=== PATIENT | male | born 1970 | race Caucasian/White ===

== ENCOUNTER 2017-08-21 10:39 | Inpatient (IN) | payer BC ==
[~2017-08-21 10:39] MED LIST: DEXAMETHASONE SOD PHOSPHATE INJ 4 MG/1 ML VIAL ONE; KETOROLAC TROMETHAMINE 60 MG/2 ML SDV ONE; LIDOCAINE 2% INJ-PF (20 MG/ML) 2 ML AMPUL ONE; METOCLOPRAMIDE HCL INJ/PF 10 MG/2 ML SDV ONE; SUCCINYLCHOLINE CHLORIDE INJ 200 MG/10 ML VIAL ONE
--- NOTE | 2017-08-21 10:58 | ER Document Report ---
HPI - HPI Patient complains to provider of: spider bite Onset: Other - wed Onset/Duration: Constant Pain Level: 4 - REPRODUCTIVE Reproductive: DENIES: : Past Medical History Endocrine Medical History: Reports: Hx Diabetes Mellitus Type 1 - Immunizations Hx Diphtheria, Pertussis, Tetanus Vaccination: Yes
--- NOTE | 2017-08-21 11:01 | ER Document Report ---
ED Medical Screen (RME) - General Chief Complaint: Insect Bite Stated Complaint: POSSIBLE SPIDER BITE Time Seen by Provider: 08/21/17 10:47 Mode of Arrival: Ambulatory Information source: Patient - Related Data Allergies/Adverse Reactions: No Known Allergies Allergy (Verified 08/21/17 10:43) Past Medical History - Social History Frequency of alcohol use: none in 3 months Drug Abuse: None Endocrine Medical History: Reports: Hx Diabetes Mellitus Type 1 Renal/ Medical History: Denies: Hx Peritoneal Dialysis - Immunizations Hx Diphtheria, Pertussis, Tetanus Vaccination: Yes Physical Exam - Vital signs Vitals: Temp Pulse BP Pulse Ox 98.7 F 111 H 120/73 94 08/21/17 10:45 08/21/17 10:45 08/21/17 10:45 08/21/17 10:45 Course - Re-evaluation Re-evalutation: 08/21/17 11:08 dr alegre looked at the wound, called dr miller who will do under anesthesia, keep npo, hydrate, he will see the pt in 1 hour. - Vital Signs Vital signs: Temp Pulse Resp BP Pulse Ox 98.7 F 111 H 120/73 94 08/21/17 10:45 08/21/17 10:45 08/21/17 10:45 08/21/17 10:45 Doctor's Discharge - Discharge Referrals: ROMEO PEDRO MD [Primary Care Provider] - Follow up as needed
[2017-08-21] MEDS ORDERED: VANCOMYCIN HCL INJ 1000 MG VIAL IV ONE (11:04)
[2017-08-21] MEDS ORDERED: NORMAL SALINE 1000 ML 1,000 ML IV ONE (11:07)
--- NOTE | 2017-08-21 11:27 | ER Document Report ---
ED Skin Rash/Insect Bite/Abscs - General Chief Complaint: Insect Bite Stated Complaint: POSSIBLE SPIDER BITE Time Seen by Provider: 08/21/17 10:47 Mode of Arrival: Ambulatory Notes: 47 yo insulin type 2 diabetic with spider bite (assumption) on tuesday, left upper thigh, in an old building, felt like something bit him while in the building. started as red dot. Taking Motrin. Feels sick, had chills. - Related Data Allergies/Adverse Reactions: No Known Allergies Allergy (Verified 08/21/17 10:43) Past Medical History - General Information source: Patient - Social History Smoking Status: Never Smoker Frequency of alcohol use: none in 3 months Drug Abuse: None Family History: Reviewed & Not Pertinent Patient has suicidal ideation: No Patient has homicidal ideation: No Endocrine Medical History: Reports: Hx Diabetes Mellitus Type 1 Renal/ Medical History: Denies: Hx Peritoneal Dialysis Surgical Hx: Negative - Immunizations Hx Diphtheria, Pertussis, Tetanus Vaccination: Yes Review of Systems - Review of Systems Constitutional: See HPI EENT: No symptoms reported Cardiovascular: No symptoms reported Respiratory: No symptoms reported Gastrointestinal: No symptoms reported Genitourinary: No symptoms reported Male Genitourinary: No symptoms reported Musculoskeletal: No symptoms reported Skin: See HPI Hematologic/Lymphatic: No symptoms reported Neurological/Psychological: No symptoms reported Physical Exam - Vital signs Vitals: Temp Pulse BP Pulse Ox 98.7 F 111 H 120/73 94 08/21/17 10:45 08/21/17 10:45 08/21/17 10:45 08/21/17 10:45 Interpretation: Normal - General General appearance: Appears well, Alert - HEENT Head: Normocephalic, Atraumatic Eyes: Normal Pupils: PERRL Neck: Supple - Respiratory Respiratory status: No respiratory distress Chest status: Nontender Breath sounds: Normal Chest palpation: Normal - Cardiovascular Rhythm: Regular Heart sounds: Normal auscultation Murmur: No - Abdominal Inspection: Normal Distension: No distension Bowel sounds: Normal Tenderness: Nontender Organomegaly: No organomegaly - Back Back: Normal, Nontender - Extremities General upper extremity: Normal inspection, Nontender, Normal color, Normal ROM , Normal temperature General lower extremity: Tender, Edema, Other - 4 cm eroded tissue with exudate left upper lateral thigh with 4 cm surrounding erythema, tender - Neurological Neuro grossly intact: Yes Cognition: Normal Orientation: AAOx4 Rashaun Coma Scale Eye Opening: Spontaneous Rashaun Coma Scale Verbal: Oriented Rashaun Coma Scale Motor: Obeys Commands Rashaun Coma Scale Total: 15 Speech: Normal Motor strength normal: LUE, RUE, LLE, RLE Sensory: Normal - Psychological Associated symptoms: Normal affect, Normal mood - Skin Skin Temperature: Warm Skin Moisture: Dry Skin Color: Normal Course - Re-evaluation Re-evalutation: 08/21/17 11:08 dr alegre looked at the wound, called dr miller who will do under anesthesia, keep npo, hydrate, he will see the pt in 1 hour. 08/21/17 13:00 dr miller has been called multiple times by the nurse and he has not seen the pt. yet. Pt NPO, vancomycin given, resting, vitals stable. 08/21/17 14:00 pt going to surgical bed upstairs. - Vital Signs Vital signs: Temp Pulse Resp BP Pulse Ox 98.7 F 98 18 112/59 L 97 08/23/17 16:15 08/23/17 16:15 08/23/17 16:15 08/23/17 16:15 08/23/17 16:15 - Laboratory Result Diagrams: 08/23/17 04:39 08/23/17 04:39 Laboratory results interpreted by me: 08/21/17 08/21/17 08/21/17 11:20 11:20 17:22 RBC 4.17 L Hgb 12.2 L Hct 36.2 L RDW 14.3 H Sodium 136.1 L Glucose 305 H POC Glucose 199 H Alkaline Phosphatase 162 H Total Protein 6.2 L 08/21/17 08/22/17 08/22/17 22:47 06:16 11:20 RBC Hgb Hct RDW Sodium Glucose POC Glucose 303 H 313 H 283 H Alkaline Phosphatase Total Protein Discharge - Discharge Clinical Impression: left aterior thigh abscess Condition: Good Disposition: ADMITTED OBSERVATION Admitting Provider: Surgicalist Unit Admitted: Surgical Floor
[2017-08-21] MEDS ORDERED: FENTANYL CITRATE INJ/PF 100 MCG/2 ML AMPUL IV ONE (11:39)
[2017-08-21 11:55] LABS: ABSOLUTE EOSINOPHILS # (AUTO) 0.2 10^3/uL (0.0-0.6); ABSOLUTE LYMPHOCYTES (AUTO) 1.9 10^3/uL (0.5-4.7); ABSOLUTE NEUT (AUTO) 5.8 10^3/uL (1.7-8.2); BASOPHILS % (AUTO) 0.1 % (0-2); EOSINOPHILS % (AUTO) 2.4 % (0-6); HEMATOCRIT 36.2 % (37.9-51.0); HEMOGLOBIN 12.2 g/dL (13.5-17.0); LYMPHOCYTES % (AUTO) 21.3 % (13-45); MEAN CORPUSCULAR HEMOGLOBIN 29.3 pg (27.0-33.4); MEAN CORPUSCULAR HGB CONC 33.8 g/dL (32.0-36.0); MEAN CORPUSCULAR VOLUME 87 fl (80-97); MONOCYTES % (AUTO) 11.1 % (3-13); PLATELET COUNT 232 10^3/uL (150-450); RED BLOOD COUNT 4.17 10^6/uL (4.35-5.55); RED CELL DISTRIBUTION WIDTH 14.3 % (11.5-14.0); SEGMENTED NEUTROPHILS % (AUTO) 65.1 % (42-78); TOTAL CELLS COUNTED % (AUTO) 100 %
[2017-08-21 12:12] LABS: ALANINE AMINOTRANSFERASE 39 U/L (21-72); ALBUMIN 3.5 g/dL (3.5-5.0); ALKALINE PHOSPHATASE 162 U/L (38-126); ANION GAP 12 (5-19); ASPARTATE AMINO TRANSFERASE 19 U/L (17-59); BILIRUBIN,DIRECT 0.4 mg/dL (0.0-0.4); BILIRUBIN,TOTAL 0.6 mg/dL (0.2-1.3); BLOOD UREA NITROGEN 15 mg/dL (7-20); CALCIUM 9.4 mg/dL (8.4-10.2); CARBON DIOXIDE 25 mmol/L (22-30); CHLORIDE 99 mmol/L (98-107); GLUCOSE 305 mg/dL (75-110); POTASSIUM 4.2 mmol/L (3.6-5.0); SODIUM 136.1 mmol/L (137-145); TOTAL PROTEIN 6.2 g/dL (6.3-8.2)
[2017-08-21] MEDS ORDERED: DEXTROSE 50%-WATER 25 GM/50 ML DISP.SYRIN IV PRN ×2 (15:10)
[2017-08-21] MEDS ORDERED: DEXTROSE 40% GEL 15 GM TUBE PO PRN ×2 (15:10)
[2017-08-21] MEDS ORDERED: GLUCAGON,HUMAN RECOMB 1 MG INJ SUBCUT PRN (15:10)
[2017-08-21] MEDS ORDERED: FENTANYL CITRATE INJ/PF 100 MCG/2 ML AMPUL ONE ×2 (15:37→17:50)
[2017-08-21] MEDS ORDERED: MIDAZOLAM 2 MG/2 ML INJ ONE (15:37)
[2017-08-21] MEDS ORDERED: KETAMINE HCL INJ 500 MG/10 ML VIAL ONE (15:37)
[2017-08-21] MEDS ORDERED: EPHEDRINE SULFATE INJ 50 MG/1 ML AMPULE ONE (15:37)
[2017-08-21] MEDS ORDERED: ACETAMINOPHEN 100 ML IV ONE (15:38)
[2017-08-21] MEDS ORDERED: DEXMEDETOMIDINE INJ 80 MCG/20 ML VIAL IV ONE (15:38)
[2017-08-21] MEDS ORDERED: PROPOFOL INJ 200 MG/20 ML VIAL IV ONE (15:38)
[2017-08-21] MEDS ORDERED: ONDANSETRON HCL INJ/PF 4 MG/2 ML SDV IV PRN (15:47)
[2017-08-21] MEDS ORDERED: DIPHENHYDRAMINE HCL 50 MG/ML VIAL IV PRN (15:47)
[2017-08-21] MEDS ORDERED: MEPERIDINE HCL/PF INJ 25 MG/1 ML DISP.SYRIN IV PRN (15:47)
[2017-08-21] MEDS ORDERED: FENTANYL CITRATE INJ/PF 100 MCG/2 ML AMPUL IV PRN ×3 (15:47)
[2017-08-21] MEDS ORDERED: PROMETHAZINE HCL INJ 25 MG/1 ML VIAL IV PRN ×2 (15:47)
--- NOTE | 2017-08-21 15:53 | PDOC H&P ---
History of Present Illness Admission Date/PCP: 08/21/17 13:07 ROMEO PEDRO Patient complains of: pains right thigh History of Present Illness: ASHKAN LANE JR is a 47 year old male, while wearing a shorts, walking thru an old building felt a sharp sting on his right thigh 08/18/17. His right thigh noted to be red and swollen around 08/20/17 asso with feeling chills 08/20/17 which would subside whwn he lies down on bed. Also 08/20 noted serous drainage and worsen this am. Past Medical History Endocrine Medical History: Reports: Diabetes Mellitus Type 1 Social History Smoking Status: Never Smoker - Advance Directive Resuscitation Status: Full Code Family History Parental Family History Reviewed: Yes - both parents has DM Children Family History Reviewed: No Sibling(s) Family History Reviewed.: No Medication/Allergy Home Medications: Diazepam [Valium 5 mg Tablet] 5 mg PO DAILYP PRN 08/21/17 Ergocalciferol (Vitamin D2) [Vitamin D2] 50,000 unit PO SOLER@1000 08/21/17 Insulin Aspart [Novolog Flexpen] 0 unit SUBCUT .SLD SCALE 08/21/17 Insulin Glargine,Hum.rec.anlog [Lantus Solostar] 70 unit SQ QHS 08/21/17 Simvastatin [Zocor 20 mg Tablet] 20 mg PO QHS 08/21/17 Sitagliptin Phos/Metformin HCl [Janumet 50-1,000 Mg Tablet] 1 each PO Q12@0600, 1800 08/21/17 Valsartan [Diovan 80 mg Tablet] 80 mg PO DAILY 08/21/17 Allergies/Adverse Reactions: No Known Allergies Allergy (Verified 08/21/17 10:43) Review of Systems Constitutional: PRESENT: chills Eyes: PRESENT: other - no visual/hearing changes Cardiovascular: PRESENT: other - no chest pains/cough Gastrointestinal: PRESENT: other - no abdominal pains Genitourinary: PRESENT: other - no dysuria Musculoskeletal: PRESENT: other - left thigh pains Integumentary: PRESENT: erythema - swelling left anterior thigh Neurological: PRESENT: other - no seizures Physical Exam Vital Signs: Temp Pulse Resp BP Pulse Ox 98.7 F 97 22 H 111/64 97 08/21/17 15:12 08/21/17 15:12 08/21/17 15:12 08/21/17 15:12 08/21/17 15:12 General appearance: PRESENT: mild distress Head exam: PRESENT: atraumatic Eye exam: PRESENT: conjunctiva pink Mouth exam: PRESENT: moist Neck exam: PRESENT: full ROM Respiratory exam: PRESENT: clear to auscultation nicole Cardiovascular exam: PRESENT: RRR Pulses: PRESENT: normal radial pulses Vascular exam: PRESENT: normal capillary refill GI/Abdominal exam: PRESENT: soft Rectal exam: PRESENT: deferred Extremities exam: PRESENT: full ROM, tenderness - and redness left anterior thigh Musculoskeletal exam: PRESENT: ambulatory Neurological exam: PRESENT: alert, oriented to person, oriented to place, oriented to time, oriented to situation Psychiatric exam: PRESENT: appropriate affect Skin exam: PRESENT: erythema, rash - swelling left anterior thigh Assessment & Plan - Diagnosis (1) Abscess Is this a current diagnosis for this admission?: Yes (2) Insect bite of left thigh Is this a current diagnosis for this admission?: Yes - Time Time Spent: 30 to 50 Minutes - Plan Summary Plan Summary: IV antibiotic For I&D and debridement left thigh
[2017-08-21] MEDS ORDERED: LIDOCAINE 2% INJ-PF (20 MG/ML) 10 ML AMPUL ONE (16:51)
[2017-08-21] MEDS ORDERED: KETOROLAC TROMETHAMINE 60 MG/2 ML SDV ONE (17:25)
[2017-08-21] MEDS ORDERED: HYDROMORPHONE HCL INJ/PF 2 MG/ML AMPULE ONE (17:25)
[2017-08-21] MEDS ORDERED: DIPHENHYDRAMINE HCL 50 MG/ML VIAL ONE (17:26)
[2017-08-21] MEDS ORDERED: NORMAL SALINE 1000 ML 1,000 ML IV PRN (17:40)
[2017-08-21] MEDS ORDERED: HYDROMORPHONE HCL INJ/PF 2 MG/ML AMPULE IV PRN (17:41)
--- NOTE | 2017-08-21 17:49 | OPERATIVE REPORT E ---
Operative Report NAME: ASHKAN LANE : 1970 AGE: 47Y DATE OF SURGERY: 08/21/2017 ROOM: 414 PREOPERATIVE DIAGNOSIS: ABSCESS, LEFT THIGH. POSTOPERATIVE DIAGNOSIS: ABSCESS, LEFT THIGH. OPERATION: Incision and drainage and debridement with pulse lavage of left thigh abscess. SURGEON: RISHI JOHNS M.D. ANESTHESIA: General. INDICATION: This is a 47-year-old male who thought he was bitten by a spider on the left thigh about 4 days ago. This started to get red and swollen and painful. PROCEDURE: After adequate general anesthesia, patient was placed in supine position, and the left thigh was prepped and draped in usual sterile fashion. Appropriate timeout was then called. Next, a cruciate incision made over the abscess cavity, and a lot of purulent material extruded out. Cultures were obtained. Finger blunt dissection of the cavity was done, and the area was then pulse lavaged with 3 liters of saline. Hemostasis obtained with cautery. The cavity roughly measured about 5 x 5 cm, down to the fascial layer. The area was then packed with a bottle of quarter-inch Iodoform gauze. Sterile dressings placed over the operative site. Patient tolerated procedure well. Needle, instrument and sponge counts were all correct. Estimated blood loss about 20 mL. Patient brought to recovery room in satisfactory condition. DICTATING PHYSICIAN: RISHI JOHNS M.D. [id number] PHY#: [id number] ID: [id number] JOB#: [id number] ACCT: [id number] cc:RISHI JOHNS M.D. >
[2017-08-21] MEDS: OXYCODONE-ACETAMINOPHEN 5-325 MG TABLET PO PRN (21:17)
[2017-08-21] MEDS ORDERED: DIAZEPAM 5 MG TABLET PO PRN (21:50)
[2017-08-21] MEDS ORDERED: INSULIN GLARGINE,HUM.REC.ANLOG 300 UNIT/3 ML INSULN.PEN SUBCUT SCH (22:00)
[2017-08-21] MEDS ORDERED: INSULIN GLARGINE,HUM.REC.ANLOG 1,000 UNIT/10 ML UNIT SUBCUT ONE (22:42)
[2017-08-21] MEDS: SIMVASTATIN 10 MG TABLET PO SCH (22:49)
[2017-08-22] MEDS ORDERED: METFORMIN HCL 500 MG TABLET PO SCH (06:00)
[2017-08-22] MEDS ORDERED: SITAGLIPTIN PHOSPHATE 50 MG TABLET PO SCH (06:00)
[2017-08-22] MEDS: OXYCODONE-ACETAMINOPHEN 5-325 MG TABLET PO PRN ×4 (06:13→18:03)
[2017-08-22] MEDS: INSULIN LISPRO 100 UNIT/ML 3 ML VIAL SUBCUT PRN ×4 (07:52→21:46)
--- NOTE | 2017-08-22 08:50 | PDOC PROGRESS REPORT ---
Subjective Progress Note for:: 08/22/17 Reason For Visit: LEFT ATERIOR THIGH ABSCESS Pain reasonably controlled. Packing removed this morning at bedside. Physical Exam Vital Signs: Temp Pulse Resp BP Pulse Ox 97.5 F 96 18 112/59 L 95 08/22/17 08:00 08/22/17 08:00 08/22/17 08:00 08/22/17 08:00 08/22/17 08:00 Intake & Output 08/21/17 08/22/17 08/23/17 06:59 06:59 06:59 Intake Total 6008 Output Total 3820 Balance 2188 Weight 104.6 kg General appearance: PRESENT: no acute distress Extremities exam: PRESENT: other - Left proximal lateral thigh packing removed; some fibrinous exudate. Surrounding tissue very edematous, indurated. Assessment & Plan - Diagnosis (1) Abscess Is this a current diagnosis for this admission?: Yes Plan: Patient is one day status post debridement left thigh wound, cultures growing gram-positive cocci, wound still hospital Recommendations: 1. Continue local wound care and intravenous antibiotics. 2. Explained to patient he may require subsequent mechanical debridement in the next 24 to 48 hours
[2017-08-22] MEDS: VALSARTAN 80 MG TABLET PO SCH (09:52)
[2017-08-22] MEDS: DOCUSATE SODIUM 100 MG CAPSULE PO SCH ×2 (09:53→18:04)
[2017-08-22] MEDS: VANCOMYCIN HCL 1,000 MG in DEXTROSE 5%-WATER 250 ML IV SCH ×2 (09:53→21:46)
--- NOTE | 2017-08-22 10:08 | Physician Advisory Note ---
Physician Advisor ProgressNote .: [facility] medical [facility] for this patient. Physician Advisor Statement: Nice documentation of continued concerns in note yesterday. STatus: 47yo diabetic (increased risk for infection/poor healing), in w/ progressively worsening soft tissue infection of leg, evidence of abscess that required debridement under anesthesia, finding 5x5cm abscess cavity. despite I& D, washout, packing, ongoing IV abx, the area was still quite edematous and indurated on POD #1, & attending concerned that pt "may need more debridement in next 24-48 hrs", awaiting further results of culture, continuing IV abx. Blood sugars 300s. High risk for further complications if not kept in hospital. Appropriate for Inpatient status. CK
--- NOTE | 2017-08-22 11:51 | PDOC CONSULTATION ---
Consultation Consult Date: 08/22/17 Attending physician:: RISHI JOHNS Consult reason:: HTN and DM History of Present Illness Admission Date/PCP: 08/21/17 13:07 ROMEO PEDRO Patient complains of: abscess History of Present Illness: ASHKAN LANE JR is a 47yo diabetic (increased risk for infection/poor healing), who presented with progressively worsening soft tissue infection of leg, evidence of abscess that required debridement under anesthesia, finding 5x5cm abscess cavity. Despite I&D, washout, packing, ongoing IV antibiotics, the area was still quite edematous and indurated on POD #1 and surgeon concerned that pt may need more debridement in next 24-48 hrs, awaiting further results of culture, continuing IV antibiotics. Blood sugars 300s. High risk for further complications if not kept in hospital. Appropriate for Inpatient status. Hospitalist consulted for HTN and DM management Past Medical History Cardiac Medical History: Reports: Hypertension Pulmonary History Note: SARCOIDOSIS Endocrine Medical History: Reports: Diabetes Mellitus Type 1 Psychiatric Medical History: Denies: Depression Past Surgical History Past Surgical History: Reports: Other - R ULNAR NERVE ENTRAPMENT Social History Smoking Status: Never Smoker Frequency of Alcohol Use: Occasional Hx Recreational Drug Use: No Drugs: None Hx Prescription Drug Abuse: No - Advance Directive Resuscitation Status: Full Code Family History Parental Family History Reviewed: No Children Family History Reviewed: Unknown Sibling(s) Family History Reviewed.: Unknown Medication/Allergy Home Medications: Diazepam [Valium 5 mg Tablet] 5 mg PO DAILYP PRN 08/21/17 Ergocalciferol (Vitamin D2) [Vitamin D2] 50,000 unit PO SOLER@1000 08/21/17 Insulin Aspart [Novolog Flexpen] 0 unit SUBCUT .SLD SCALE 08/21/17 Insulin Glargine,Hum.rec.anlog [Lantus Solostar] 70 unit SQ QHS 08/21/17 Simvastatin [Zocor 20 mg Tablet] 20 mg PO QHS 08/21/17 Sitagliptin Phos/Metformin HCl [Janumet 50-1,000 Mg Tablet] 1 each PO Q12@0600, 1800 08/21/17 Valsartan [Diovan 80 mg Tablet] 80 mg PO DAILY 08/21/17 Allergies/Adverse Reactions: No Known Allergies Allergy (Verified 08/21/17 10:43) Review of Systems All systems: reviewed and no additional remarkable complaints except as stated Physical Exam Vital Signs: Temp Pulse Resp BP Pulse Ox 97.5 F 96 18 112/59 L 96 08/22/17 08:00 08/22/17 08:00 08/22/17 08:00 08/22/17 08:00 08/22/17 11:03 Intake & Output 08/21/17 08/22/17 08/23/17 06:59 06:59 06:59 Intake Total 6008 Output Total 3820 Balance 2188 Weight 104.6 kg General appearance: PRESENT: no acute distress Eye exam: PRESENT: conjunctiva pink, PERRLA Mouth exam: PRESENT: moist Neck exam: PRESENT: full ROM Respiratory exam: PRESENT: clear to auscultation nicole, symmetrical, unlabored Cardiovascular exam: PRESENT: +S1, +S2 Pulses: PRESENT: normal radial pulses, +1 pedal pulses bilateral GI/Abdominal exam: PRESENT: normal bowel sounds, soft. ABSENT: tenderness Rectal exam: PRESENT: deferred Extremities exam: PRESENT: full ROM Musculoskeletal exam: PRESENT: ambulatory, full ROM Neurological exam: PRESENT: alert, awake, oriented to person, oriented to place , oriented to time, oriented to situation Skin exam: PRESENT: other - LLE SURGICAL SITE PACKED WITH IODOFORM AND COVERED WITH GAUZE. Results Status: Imported from PACS Assessment & Plan - Diagnosis (1) Abscess Is this a current diagnosis for this admission?: Yes Plan: Patient presents with 5x5cm abscess to L anterior thigh I&D 08/[address] Hall Packed with iodiform and covered with gauze Continue IV antibiotics per surgery (2) HTN (hypertension) Qualifiers: Hypertension type: essential hypertension Qualified Code(s): I10 - Essential (primary) hypertension Is this a current diagnosis for this admission?: Yes Plan: Patient endorses a [facility] HTN, medications are managed by Dr. Pedro Patient reports having a stress test done 5-10 years ago, was [facility] catheter[facility] and results were negative. No coronary blockage. Continue home dose Diovan and simvastatin (3) Diabetes Qualifiers: Diabetes mellitus type: type 2 Diabetes mellitus half-way insulin use: with terminal gauger supervisor use Diabetes mellitus complication status: without complication Qualified Code(s): E11.9 - Type 2 diabetes mellitus without complications; Z79.4 - long-term (current) use of insulin; Z79.4 - terminal manager ( current) use of insulin; Z79.4 - long-term (current) use of insulin; Z79.4 - terminal manager (current) use of insulin Is this a current diagnosis for this admission?: Yes Plan: Patient endorses history of DM HOLD metformin and januvia for now Continue home dose lantus Accuchecks ACHS, humalog sliding scale insulin Check HgbA1C in AM - Time Medications reviewed and adjusted accordingly: Yes Anticipated discharge: Home Within: within 24 hours - Inpatient Certification Based on my medical assessment, after consideration of the patient's comorbidities, presenting symptoms, or acuity I expect that the services needed warrant INPATIENT care.: Yes I certify that my determination is in accordance with my understanding of Medicare's requirements for reasonable and necessary INPATIENT services [42 CFR 412.3e].: Yes Medical Necessity: Risk of Complication if Not Cared For in Hospital
[2017-08-22] MEDS: SIMVASTATIN 10 MG TABLET PO SCH (21:46)
[2017-08-22] MEDS ORDERED: INSULIN GLARGINE,HUM.REC.ANLOG 1,000 UNIT/10 ML UNIT SUBCUT SCH (22:00)
[2017-08-23] MEDS: OXYCODONE-ACETAMINOPHEN 5-325 MG TABLET PO PRN (00:23)
[2017-08-23 05:05] LABS: ABSOLUTE BASOPHILS # (AUTO) 0.1 10^3/uL (0.0-0.2); ABSOLUTE EOSINOPHILS # (AUTO) 0.2 10^3/uL (0.0-0.6); ABSOLUTE LYMPHOCYTES (AUTO) 2.1 10^3/uL (0.5-4.7); ABSOLUTE MONOCYTES (AUTO) 0.8 10^3/uL (0.1-1.4); BASOPHILS % (AUTO) 1.1 % (0-2); EOSINOPHILS % (AUTO) 3.1 % (0-6); HEMATOCRIT 32.9 % (37.9-51.0); HEMOGLOBIN 11.2 g/dL (13.5-17.0); LYMPHOCYTES % (AUTO) 29.7 % (13-45); MEAN CORPUSCULAR HEMOGLOBIN 29.8 pg (27.0-33.4); MEAN CORPUSCULAR HGB CONC 34.1 g/dL (32.0-36.0); MEAN CORPUSCULAR VOLUME 87 fl (80-97); MONOCYTES % (AUTO) 10.6 % (3-13); PLATELET COUNT 197 10^3/uL (150-450); RED BLOOD COUNT 3.78 10^6/uL (4.35-5.55); RED CELL DISTRIBUTION WIDTH 14.1 % (11.5-14.0); SEGMENTED NEUTROPHILS % (AUTO) 55.5 % (42-78); TOTAL CELLS COUNTED % (AUTO) 100 %; WHITE BLOOD COUNT 7.2 10^3/uL (4.0-10.5)
[2017-08-23 05:28] LABS: ANION GAP 10 (5-19); BLOOD UREA NITROGEN 11 mg/dL (7-20); CALCIUM 8.3 mg/dL (8.4-10.2); CARBON DIOXIDE 25 mmol/L (22-30); CHLORIDE 103 mmol/L (98-107); GLUCOSE 202 mg/dL (75-110); PHOSPHORUS 3.1 mg/dL (2.5-4.5); POTASSIUM 3.9 mmol/L (3.6-5.0); SODIUM 137.8 mmol/L (137-145)
[2017-08-23] MEDS: INSULIN LISPRO 100 UNIT/ML 3 ML VIAL SUBCUT PRN ×2 (07:56→12:08)
[2017-08-23] MEDS ORDERED: IBUPROFEN 800 MG TABLET PO PRN (08:33)
[2017-08-23] MEDS ORDERED: ACETAMINOPHEN 325 MG TABLET PO PRN (08:34)
--- NOTE | 2017-08-23 09:22 | PDOC PROGRESS REPORT ---
Subjective Reason For Visit: ABSCESS LEFT THIGH Physical Exam Vital Signs: Temp Pulse Resp BP Pulse Ox 98.7 F 98 18 133/65 H 97 08/23/17 07:17 08/23/17 07:17 08/23/17 07:17 08/23/17 07:17 08/23/17 07:17 Intake & Output 08/22/17 08/23/17 08/24/17 06:59 06:59 06:59 Intake Total 560 Output Total 500 Balance 60 Weight 108.4 kg Results Laboratory Results: 08/23/17 04:39 08/23/17 04:39 08/23/17 08/23/17 04:39 04:39 WBC 7.2 RBC 3.78 L Hgb 11.2 L Hct 32.9 L MCV 87 MCH 29.8 MCHC 34.1 RDW 14.1 H Plt Count 197 Seg Neutrophils % 55.5 Lymphocytes % 29.7 Monocytes % 10.6 Eosinophils % 3.1 Basophils % 1.1 Absolute Neutrophils 4.0 Absolute Lymphocytes 2.1 Absolute Monocytes 0.8 Absolute Eosinophils 0.2 Absolute Basophils 0.1 Sodium 137.8 Potassium 3.9 Chloride 103 Carbon Dioxide 25 Anion Gap 10 BUN 11 Creatinine 0.69 Est GFR ( Amer) > 60 Est GFR (Non-Af Amer) > 60 Glucose 202 H Calcium 8.3 L Phosphorus 3.1 Magnesium 1.8 Assessment & Plan - Plan Summary Plan Summary: Is a 47-year-old male status post incision and drainage of a thigh abscess. The wound is improving. There is a small amount of fibrinous debris. The patient's blood sugars are still somewhat elevated. I will transition the patient to nonnarcotic pain medications, oral antibiotics, and plan for discharge (if okay with medical service). Continue with twice daily dressing changes.
[2017-08-23] MEDS: DOCUSATE SODIUM 100 MG CAPSULE PO SCH (10:17)
[2017-08-23] MEDS: VANCOMYCIN HCL 1,000 MG in DEXTROSE 5%-WATER 250 ML IV SCH (10:17)
[2017-08-23] MEDS: VALSARTAN 80 MG TABLET PO SCH (10:17)
--- NOTE | 2017-08-23 12:19 | PDOC PROGRESS REPORT ---
Subjective Progress Note for:: 08/23/17 Subjective:: The patient is a 47-year-old male with a past medical history of insulin- dependent diabetes mellitus (uncontrolled), hypertension, and sarcoidosis who was admitted on 08/21/17 by the surgical service for incision and drainage of abscess to the left anterior thigh. The patient is seen on morning rounds. He states he has been ambulating independently in the hallways without increased discomfort. He reports that he is feeling well today. He denies fever, chills, body aches, chest pain, palpitations, dyspnea, abdominal pain, nausea and vomiting. He reports that he has been told by the surgical service that he will likely be discharged home today. We briefly discussed that the patient's A1c is greater than 13% indicating that his diabetes is poorly controlled. The patient tells me that he has all of his needed medications at home and does not require refills of medications, syringes , glucometer/strips/lancets. He is strongly advised to follow a consistent carb diet to follow-up with his primary care provider for improved blood glucose control. He is offered a referral for home health nursing to assist him in managing his diabetes and medication which he declines at this time. He has no new questions or concerns at this time. Reason For Visit: ABSCESS LEFT THIGH Physical Exam Vital Signs: Temp Pulse Resp BP Pulse Ox 98.7 F 98 18 133/65 H 97 08/23/17 07:17 08/23/17 07:17 08/23/17 07:17 08/23/17 07:17 08/23/17 07:17 Intake & Output 08/22/17 08/23/17 08/24/17 06:59 06:59 06:59 Intake Total 560 Output Total 500 Balance 60 Weight 108.4 kg General appearance: PRESENT: no acute distress, well-developed, well-nourished, other - Overweight Head exam: PRESENT: atraumatic, normocephalic Eye exam: PRESENT: conjunctiva pink, EOMI, PERRLA. ABSENT: scleral icterus Ear exam: PRESENT: normal external ear exam Mouth exam: PRESENT: moist, tongue midline Neck exam: ABSENT: carotid bruit, JVD, lymphadenopathy, thyromegaly Respiratory exam: PRESENT: clear to auscultation nicole, symmetrical, unlabored. ABSENT: rales, rhonchi, wheezes Cardiovascular exam: PRESENT: RRR, +S1, +S2. ABSENT: diastolic murmur, rubs, systolic murmur Pulses: PRESENT: normal dorsalis pedis pul Vascular exam: PRESENT: normal capillary refill GI/Abdominal exam: PRESENT: normal bowel sounds, soft. ABSENT: distended, guarding, mass, organolmegaly, rebound, tenderness Rectal exam: PRESENT: deferred Extremities exam: PRESENT: full ROM. ABSENT: calf tenderness, clubbing, pedal edema Neurological exam: PRESENT: alert, awake, oriented to person, oriented to place , oriented to time, oriented to situation, CN II-XII grossly intact. ABSENT: motor sensory deficit Psychiatric exam: PRESENT: appropriate affect, normal mood. ABSENT: homicidal ideation, suicidal ideation Skin exam: PRESENT: dry, warm, other - LLE surgical site covered with gauze; no surrouding erythema noted. ABSENT: cyanosis Results Laboratory Results: 08/23/17 04:39 08/23/17 04:39 08/23/17 08/23/17 04:39 04:39 WBC 7.2 RBC 3.78 L Hgb 11.2 L Hct 32.9 L MCV 87 MCH 29.8 MCHC 34.1 RDW 14.1 H Plt Count 197 Seg Neutrophils % 55.5 Lymphocytes % 29.7 Monocytes % 10.6 Eosinophils % 3.1 Basophils % 1.1 Absolute Neutrophils 4.0 Absolute Lymphocytes 2.1 Absolute Monocytes 0.8 Absolute Eosinophils 0.2 Absolute Basophils 0.1 Sodium 137.8 Potassium 3.9 Chloride 103 Carbon Dioxide 25 Anion Gap 10 BUN 11 Creatinine 0.69 Est GFR ( Amer) > 60 Est GFR (Non-Af Amer) > 60 Glucose 202 H Calcium 8.3 L Phosphorus 3.1 Magnesium 1.8 Assessment & Plan - Diagnosis (1) Abscess Is this a current diagnosis for this admission?: Yes Plan: Primary plan per surgery; now status post I&D on 08/[address] Magallon. Blood cultures have no growth at 24 hours. Wound culture: Pansensitive staph aureus Antibiotic therapy per surgery. Wound care/dressing change orders per surgery. Pain management per surgery. 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 A1c noted to be 13.2%. The patient states that he recently had a follow-up appointment with his primary care provider and is not in need of refills of his home medications. He declines to have his medication doses adjusted or to have a referral to home health nursing for disease management and medication education. We will continue holding metformin and Januvia while inpatient; may resume upon discharge. We will continue the patient's home dose Lantus 70 units nightly. The patient is placed on a consistent carb diet with Accu-Cheks before meals and at bedtime with Humalog for sliding scale coverage. The all source intelligence and registered dietitian are consulted; appreciate their assistance in educating this patient. (3) HTN (hypertension) Qualifiers: Hypertension type: essential hypertension Qualified Code(s): I10 - Essential (primary) hypertension Is this a current diagnosis for this admission?: Yes Plan: Continue home dose Diovan. - Time Time Spent with patient: 15-24 minutes Medications reviewed and adjusted accordingly: Yes Anticipated discharge: Home - Plan Summary Plan Summary: The patient is medically stable for discharge at the Surgery team's discretion. Strongly advise the patient to follow up with his primary care provider for diabetes management within 1-2 weeks.
--- NOTE | 2017-08-23 16:15 | Discharge Summary ---
Discharge Summary (SDC) - Discharge Final Diagnosis: thigh abscess Discharge Date: 08/23/17 Condition: Good Treatment or Instructions: damp dressing changes BID Clean the infected area with soap and water BID Referrals: [facility] [Provider Group] - 08/29/17 10:45 am Discharge Activity: Activity As Tolerated Home Care Assistance: None Needed Report the Following to Your Physician Immediately: Nausea, Vomiting, Increase in Pain, Signs of Hyperglycemia, Fever over 101 Degrees, Swelling, Warmth, Increased Soreness
--- NOTE | 2017-08-23 16:18 | PDOC DISCHARGE SUMMARY ---
General - Admit/Disc Date/PCP Admission Date/Primary Care Provider: 08/22/17 15:20 ROMEO PEDRO Discharge Date: 08/23/17 - Discharge Diagnosis (1) Abscess Is this a current diagnosis for this admission?: Yes (2) Diabetes Is this a current diagnosis for this admission?: Yes - Additional Information Resuscitation Status: Full Code Discharge Diet: Diabetic Discharge Activity: Activity As Tolerated Home Medications: Diazepam [Valium 5 mg Tablet] 5 mg PO DAILYP PRN 08/21/17 Ergocalciferol (Vitamin D2) [Vitamin D2] 50,000 unit PO SOLER@1000 08/21/17 Insulin Aspart [Novolog Flexpen] 0 unit SUBCUT .SLD SCALE 08/21/17 Insulin Glargine,Hum.rec.anlog [Lantus Solostar] 70 unit SQ QHS 08/21/17 Simvastatin [Zocor 20 mg Tablet] 20 mg PO QHS 08/21/17 Sitagliptin Phos/Metformin HCl [Janumet 50-1,000 mg Tablet] 1 each PO Q12@0600, 1800 08/21/17 Valsartan [Diovan 80 mg Tablet] 80 mg PO DAILY 08/21/17 Acetaminophen [Tylenol 325 mg Tablet] 325 mg PO Q4HP PRN tablet 08/23/17 Diazepam [Valium 5 mg Tablet] 5 mg PO DAILYP PRN tablet 08/23/17 Docusate Sodium [Colace 100 mg Capsule] 100 mg PO BID capsule 08/23/17 Ibuprofen [Motrin 800 mg Tablet] 800 mg PO Q8HP PRN tablet 08/23/17 History of Present Illness History of Present Illness: ASHKAN L[address] JR is a 47 year old male with a thigh abscess. He was found to have hyperglycemia. He was taken to the operating room for definitive treatment. Internal medicine was consulted to manage his blood sugars. After adequate drainage of his abscess, his pain improved and his fever subsided. Hospital Course Hospital Course: Patient underwent incision and drainage of his thigh abscess. The patient began to improve significantly. By 08/23/2017 the patient was ambulating, tolerating a diet, his pain was controlled with oral pain medications, his fevers were gone, and it was felt that he had reached maximal hospital benefit and was fit for discharge. Physical Exam Vital Signs: Temp Pulse Resp BP Pulse Ox 98.7 F 98 18 133/65 H 97 05/08/18 07:17 08/23/17 07:17 08/23/17 07:17 08/23/17 07:17 08/23/17 07:17 Intake & Output 08/22/17 08/23/17 08/24/17 06:59 06:59 06:59 Intake Total 560 Output Total 500 Balance 60 Weight 108.4 kg Results Laboratory Results: 08/23/17 04:39 08/23/17 04:39 08/23/17 08/23/17 04:39 04:39 WBC 7.2 RBC 3.78 L Hgb 11.2 L Hct 32.9 L MCV 87 MCH 29.8 MCHC 34.1 RDW 14.1 H Plt Count 197 Seg Neutrophils % 55.5 Lymphocytes % 29.7 Monocytes % 10.6 Eosinophils % 3.1 Basophils % 1.1 Absolute Neutrophils 4.0 Absolute Lymphocytes 2.1 Absolute Monocytes 0.8 Absolute Eosinophils 0.2 Absolute Basophils 0.1 Sodium 137.8 Potassium 3.9 Chloride 103 Carbon Dioxide 25 Anion Gap 10 BUN 11 Creatinine 0.69 Est GFR ( Amer) > 60 Est GFR (Non-Af Amer) > 60 Glucose 202 H Calcium 8.3 L Phosphorus 3.1 Magnesium 1.8 Qualifiers - * PATIENT BEING DISCHARGED WITH ANY OF THE FOLLOWING DIAGNOSIS: No Plan Time Spent: Less than 30 Minutes
[2017-08-23 17:18] VITALS: BP 124/70
[2017-08-28] MEDS ORDERED: ERGOCALCIFEROL (VITAMIN D2) 50000 UNIT (1.25 MG) CAPSULE PO SCH (10:00)
== END 2017-08-23 16:57 | disposition home or self-care (01) | DRG 581 ==
LOC: ER 10:39 → EH 13:07 → 4N 14:55 → OBSVTOIN 08-22 15:20
PROVIDERS: ADMIT Surgery; ATTEND Surgery
PROC: 0J9P0ZZ Drainage of Left Lower Leg Subcutaneous Tissue and Fascia, Open Approach (ICD-10-PCS; principal; 2017-08-21 16:30)
DX: L02.416 Cutaneous abscess of left lower limb (principal); E10.65 Type 1 diabetes mellitus with hyperglycemia; I10 Essential (primary) hypertension; Z79.4 Long term (current) use of insulin
CPT/HCPCS: 36415; 400; 80048; 80053; 82962; 83036; 83735; 84100; 85025; 87040; 87070; 87075; 87077; 87186; 87205; 96365; 96366; 96375; 99285; A6266; G0378; J0131; J0330; J1100; J1170; J1200; J1815; J1885; J2250; J2704; J2765; J3010; J3370; J3490; J7030; J7060